=== PATIENT | female | born 1945 | race Caucasian/White ===

== ENCOUNTER 2019-12-11 18:16 | Inpatient (IN) ==
[2019-12-11] MEDS ORDERED: SODIUM CHLORIDE 0.9% 1,000 ML IV STA (18:40)
[2019-12-11 19:02] LABS: Basophils % 0.1 % (0.0-0.8); Hematocrit 35.8 VOL% (35.7-47.0); Hemoglobin 12.2 GM/DL (12.0-16.0); Immature Granulocytes % 2.5 %; Immature Granulocytes Absolute 0.36 #; Lymphocytes # 0.6 10*3/uL (1.4-4.0); Lymphocytes % 4.3 % (21.3-54.2); Mean Corpuscular HGB Conc 34.1 GM/DL (32-36); Mean Corpuscular Volume 82.9 FL (87-102); Mean Platelet Volume 9.7 FL (9.6-12.0); Monocytes % 2.4 % (1.7-12.7); Neutrophils % 90.7 % (38.7-73.9); Platelet Count 327 T/CUMM (130-400); Red Blood Count 4.32 MC/CUMM (3.8-5.5); Red Cell Distribution Width 13.7 % (9.3-17.3); White Blood Count 14.3 T/CUMM (4-12)
[2019-12-11 19:02] LABS: ABG Base Excess 0.4 MMOL/L (-2.5-2.5); ABG HCO3 24.6 MMOL/L (20-26); ABG PCO2 31.9 MM HG (35-48); ABG PH 7.473 (7.35-7.45); ABG PO2 56.1 MM HG (80-95); ABG TCO2 20.9 MMOL/L (23-27)
[2019-12-11 19:19] LABS: Lymphocytes 7 % (20-55); Metamyelocytes 1 %; Microcytosis 1+; Myelocytes 2 %; Segmented Neutrophils 88 % (50-85); Total Cells Counted 100
[2019-12-11 19:20] LABS: Ovalocytes 1+; Schistocytes 1+; Toxic Granulation 1+
[2019-12-11 19:21] LABS: Hypochromasia Slight
[2019-12-11 19:22] LABS: Platelet Estimate Normal; Polychromasia Slight; Spherocytes 1+
[2019-12-11] MEDS ORDERED: cefTRIAXone 1,000 MG in SODIUM CHLORIDE 0.9% 100 ML IV STA (19:22)
[2019-12-11] MEDS ORDERED: LEVOFLOXACIN INJ 500 MG in PREMIX 1 EACH IV STA (19:22)
[2019-12-11 19:23] LABS: INR 1.1; PT Patient Result 11.8 SECS (9.8-11.9)
[2019-12-11 19:28] LABS: Calcium 8.1 MG/DL (8.5-10.1)
[2019-12-11 19:29] LABS: Albumin 2.9 G/DL (3.4-5.0); Bilirubin,Total 0.6 MG/DL (0.2-1.0); Osmolality,Calculated 245.1 MOS/KG (273-304); Total Protein 6.7 G/DL (6.4-8.3)
[2019-12-11 19:33] LABS: Ferritin 1157.7 ng/ml (8-252)
[2019-12-11] MEDS ORDERED: ONDANSETRON 4 MG/2 ML VIAL IV PRN (20:09)
[2019-12-11] MEDS: DOCUSATE SODIUM 100 MG CAPSULE PO SCH (23:10)
[2019-12-11] MEDS: SODIUM CHLORIDE 0.9% 1,000 ML IV SCH (23:11)
[2019-12-12 05:51] LABS: Basophils % 0.2 % (0.0-0.8); Hematocrit 33.8 VOL% (35.7-47.0); Immature Granulocytes % 3.1 %; Immature Granulocytes Absolute 0.35 #; Lymphocytes # 0.4 10*3/uL (1.4-4.0); Lymphocytes % 3.7 % (21.3-54.2); Mean Corpuscular HGB Conc 32.5 GM/DL (32-36); Mean Platelet Volume 10.2 FL (9.6-12.0); Platelet Count 208 T/CUMM (130-400); Red Blood Count 3.93 MC/CUMM (3.8-5.5); Red Cell Distribution Width 13.7 % (9.3-17.3); White Blood Count 11.2 T/CUMM (4-12)
[2019-12-12 06:14] LABS: Albumin 2.2 G/DL (3.4-5.0); Bilirubin,Total 0.6 MG/DL (0.2-1.0); Calcium 7.7 MG/DL (8.5-10.1); Osmolality,Calculated 244.9 MOS/KG (273-304); Total Protein 6.3 G/DL (6.4-8.3)
[2019-12-12 06:20] LABS: Band Neutrophils 1 % (0-10); Hypochromasia 1+; Lymphocytes 5 % (20-55); Ovalocytes Slight; Platelet Estimate Adequate; Segmented Neutrophils 92 % (50-85); Total Cells Counted 100
[2019-12-12 06:21] LABS: Microcytosis Slight
[2019-12-12] MEDS: ALBUTEROL INHALER 18 GM INH SCH ×3 (07:12→18:17)
[2019-12-12] MEDS: SODIUM CHLORIDE 0.9% 1,000 ML IV SCH ×4 (08:09→17:10)
[2019-12-12] MEDS: DOCUSATE SODIUM 100 MG CAPSULE PO SCH ×2 (08:59→20:24)
[2019-12-12] MEDS: MULTIVITAMIN (CENTRUM) TABLET PO SCH (08:59)
[2019-12-12] MEDS: FAMOTIDINE 20 MG TABLET PO SCH ×2 (08:59→20:24)
[2019-12-12] MEDS: LORATADINE 10 MG TABLET PO SCH (08:59)
[2019-12-12] MEDS: METOPROLOL SUCCINATE XL 50 MG TABLET PO SCH ×2 (08:59→20:24)
[2019-12-12] MEDS: MAGNESIUM OXIDE 400 MG TABLET PO SCH (08:59)
[2019-12-12] MEDS: ASCORBIC ACID 500 MG TABLET PO SCH ×2 (08:59→20:24)
[2019-12-12] MEDS ORDERED: LORATADINE 10 MG PO SCH (09:00)
[2019-12-12] MEDS: ASPIRIN EC 81 MG TABLET PO SCH (09:00)
[2019-12-12] MEDS ORDERED: methylPREDNISolone SOD SUC 40 MG/1 ML VIAL IV SCH (09:00)
[2019-12-12] MEDS ORDERED: DEXAMETHASONE 10 MG/1 ML VIAL IV SCH (09:00)
[2019-12-12] MEDS ORDERED: DEXAMETHASONE INJ 10 MG in SODIUM CHLORIDE 0.9% 50 ML IV SCH (09:00)
[2019-12-12] MEDS: ENOXAPARIN 30 MG/0.3 ML SYRINGE SUBCUT SCH ×2 (09:00→20:24)
[2019-12-12] MEDS ORDERED: PANTOPRAZOLE 40 MG TABLET PO SCH (09:00)
[2019-12-12] MEDS: LOSARTAN 50 MG TABLET PO SCH (09:00)
[2019-12-12] MEDS: ATORVASTATIN 10 MG TABLET PO SCH (09:00)
[2019-12-12 17:58] LABS: Apearance,Urine CLEAR (Clear); Bilirubin,Urine Negative (Negative); Blood, Urine Small mg/dL (Negative); Glucose,Urine (UA) Negative (Negative); Ketones,Urine 5 mg/dL (Negative); Mucus,Urine Occasional /LPF (Occasional); Nitrite,Urine Negative (Negative); Protein,Urine Negative; RBC,Urine 7 /HPF (0-4); Urine Color Yellow (Yellow); Urine Specific Gravity 1.005 (1.001-1.035); Urine Urobilinogen < 2.0 EU/DL (0.2-1.0); WBC,Urine 1 /HPF (0-6)
[2019-12-12] MEDS: MONTELUKAST 10 MG TABLET PO SCH (20:24)
[2019-12-13] MEDS: ALBUTEROL INHALER 18 GM INH SCH ×4 (00:23→20:44)
[2019-12-13] MEDS: SODIUM CHLORIDE 0.9% 1,000 ML IV SCH ×4 (02:58→22:16)
[2019-12-13 05:43] LABS: Basophils % 0.1 % (0.0-0.8); Hematocrit 30.4 VOL% (35.7-47.0); Hemoglobin 10.2 GM/DL (12.0-16.0); Immature Granulocytes Absolute 0.44 #; Lymphocytes # 0.4 10*3/uL (1.4-4.0); Lymphocytes % 3.8 % (21.3-54.2); Mean Corpuscular HGB Conc 33.6 GM/DL (32-36); Mean Corpuscular Volume 82.8 FL (87-102); Mean Platelet Volume 9.9 FL (9.6-12.0); Neutrophils % 89.1 % (38.7-73.9); Platelet Count 245 T/CUMM (130-400); Red Blood Count 3.67 MC/CUMM (3.8-5.5); Red Cell Distribution Width 13.9 % (9.3-17.3)
[2019-12-13 06:08] LABS: Hypochromasia Slight; Lymphocytes 6 % (20-55); Platelet Estimate Adequate; Segmented Neutrophils 90 % (50-85); Total Cells Counted 100
[2019-12-13 06:09] LABS: Microcytosis Slight
[2019-12-13 06:22] LABS: Albumin 2.1 G/DL (3.4-5.0); Bilirubin,Total 0.5 MG/DL (0.2-1.0); Calcium 7.8 MG/DL (8.5-10.1); Osmolality,Calculated 267.2 MOS/KG (273-304); Risk Ratio 2.43; Total Protein 5.9 G/DL (6.4-8.3); VLDL CHOLESTEROL 12.6 MG/DL
[2019-12-13] MEDS: DOCUSATE SODIUM 100 MG CAPSULE PO SCH ×2 (08:17→20:41)
[2019-12-13] MEDS: ASCORBIC ACID 500 MG TABLET PO SCH ×2 (08:17→20:43)
[2019-12-13] MEDS: LORATADINE 10 MG TABLET PO SCH (08:17)
[2019-12-13] MEDS: ATORVASTATIN 10 MG TABLET PO SCH (08:17)
[2019-12-13] MEDS: ENOXAPARIN 30 MG/0.3 ML SYRINGE SUBCUT SCH ×2 (08:17→20:42)
[2019-12-13] MEDS: MULTIVITAMIN (CENTRUM) TABLET PO SCH (08:18)
[2019-12-13] MEDS: FAMOTIDINE 20 MG TABLET PO SCH ×2 (08:18→20:43)
[2019-12-13] MEDS: MAGNESIUM OXIDE 400 MG TABLET PO SCH (08:18)
[2019-12-13] MEDS: ASPIRIN EC 81 MG TABLET PO SCH (08:18)
[2019-12-13] MEDS: METOPROLOL SUCCINATE XL 50 MG TABLET PO SCH ×2 (08:18→20:44)
[2019-12-13] MEDS: LOSARTAN 50 MG TABLET PO SCH (08:18)
[2019-12-13] MEDS: DEXAMETHASONE INJ 10 MG in SODIUM CHLORIDE 0.9% 50 ML IV SCH (08:57)
[2019-12-13 17:05] LABS: ABG Base Excess 0.9 MMOL/L (-2.5-2.5); ABG Oxygen Saturation 87.9 % (95-100); ABG PCO2 33.4 MM HG (35-48); ABG PH 7.466 (7.35-7.45); ABG PO2 52.8 MM HG (80-95); ABG TCO2 21.6 MMOL/L (23-27)
[2019-12-13] MEDS: LEVOFLOXACIN INJ 750 MG in PREMIX 1 EACH IV SCH (17:56)
[2019-12-13] MEDS ORDERED: ARFORMOTEROL 15 MCG/2 ML NEB RESP TX SCH (19:00)
[2019-12-13 20:26] LABS: ABG Base Excess 0.3 MMOL/L (-2.5-2.5); ABG HCO3 24.7 MMOL/L (20-26); ABG Oxygen Saturation 98.8 % (95-100); ABG PCO2 35.7 MM HG (35-48); ABG PH 7.438 (7.35-7.45); ABG TCO2 21.6 MMOL/L (23-27); Allen Test Positive; Pt O2 Delivery Device BIPAP
[2019-12-13] MEDS: MONTELUKAST 10 MG TABLET PO SCH (20:43)
[2019-12-14] MEDS: ALBUTEROL INHALER 18 GM INH SCH ×4 (01:15→20:39)
[2019-12-14 03:29] LABS: ABG Base Excess -1.3 MMOL/L (-2.5-2.5); ABG HCO3 22.8 MMOL/L (20-26); ABG Oxygen Saturation 95.7 % (95-100); ABG PCO2 36.1 MM HG (35-48); ABG PH 7.419 (7.35-7.45); ABG PO2 82.2 MM HG (80-95); ABG TCO2 23.9 MMOL/L (23-27); Allen Test Positive; Pt O2 Delivery Device Ventilator
[2019-12-14 04:31] LABS: Basophils % 0.2 % (0.0-0.8); Hematocrit 30.6 VOL% (35.7-47.0); Hemoglobin 10.2 GM/DL (12.0-16.0); Immature Granulocytes % 2.2 %; Immature Granulocytes Absolute 0.24 #; Lymphocytes # 0.3 10*3/uL (1.4-4.0); Lymphocytes % 2.9 % (21.3-54.2); Mean Corpuscular HGB Conc 33.3 GM/DL (32-36); Mean Corpuscular Volume 84.3 FL (87-102); Mean Platelet Volume 9.5 FL (9.6-12.0); Monocytes % 1.7 % (1.7-12.7); Platelet Count 246 T/CUMM (130-400); Red Blood Count 3.63 MC/CUMM (3.8-5.5); Red Cell Distribution Width 14.1 % (9.3-17.3); White Blood Count 10.9 T/CUMM (4-12)
[2019-12-14 04:59] LABS: Bilirubin,Total 0.7 MG/DL (0.2-1.0); Calcium 7.7 MG/DL (8.5-10.1); Total Protein 5.9 G/DL (6.4-8.3)
[2019-12-14 05:12] LABS: Hypochromasia 1+; Lymphocytes 3 % (20-55); Microcytosis Slight; Ovalocytes Slight; Platelet Estimate Adequate; Segmented Neutrophils 95 % (50-85); Total Cells Counted 100
[2019-12-14] MEDS: LOSARTAN 50 MG TABLET PO SCH (08:21)
[2019-12-14] MEDS: ASCORBIC ACID 500 MG TABLET PO SCH ×2 (08:21→20:39)
[2019-12-14] MEDS: MAGNESIUM OXIDE 400 MG TABLET PO SCH (08:21)
[2019-12-14] MEDS: ENOXAPARIN 30 MG/0.3 ML SYRINGE SUBCUT SCH ×2 (08:21→20:39)
[2019-12-14] MEDS: MULTIVITAMIN (CENTRUM) TABLET PO SCH (08:21)
[2019-12-14] MEDS: ATORVASTATIN 10 MG TABLET PO SCH (08:21)
[2019-12-14] MEDS: LORATADINE 10 MG TABLET PO SCH (08:22)
[2019-12-14] MEDS: DOCUSATE SODIUM 100 MG CAPSULE PO SCH ×2 (08:22→20:39)
[2019-12-14] MEDS: FAMOTIDINE 20 MG TABLET PO SCH ×2 (08:22→20:39)
[2019-12-14] MEDS: ASPIRIN EC 81 MG TABLET PO SCH (08:22)
[2019-12-14] MEDS: METOPROLOL SUCCINATE XL 50 MG TABLET PO SCH ×2 (08:22→20:39)
[2019-12-14] MEDS: SODIUM CHLORIDE 0.9% 1,000 ML IV SCH ×3 (09:21→23:29)
[2019-12-14] MEDS: DEXAMETHASONE INJ 10 MG in SODIUM CHLORIDE 0.9% 50 ML IV SCH (09:22)
[2019-12-14] MEDS ORDERED: SODIUM CHLORIDE 0.9% 1,000 ML IV PRN (14:13)
[2019-12-14] MEDS: LEVOFLOXACIN INJ 750 MG in PREMIX 1 EACH IV SCH (15:53)
[2019-12-14] MEDS ORDERED: REMDESIVIR 200 MG in SODIUM CHLORIDE 0.9% 210 ML IV ONE (17:00)
[2019-12-14] MEDS: MONTELUKAST 10 MG TABLET PO SCH (20:39)
[2019-12-15] MEDS: ALBUTEROL INHALER 18 GM INH SCH ×4 (00:31→20:50)
[2019-12-15 03:38] LABS: Basophils % 0.1 % (0.0-0.8); Hematocrit 30.2 VOL% (35.7-47.0); Immature Granulocytes % 1.9 %; Immature Granulocytes Absolute 0.21 #; Lymphocytes # 0.4 10*3/uL (1.4-4.0); Lymphocytes % 3.1 % (21.3-54.2); Mean Corpuscular HGB Conc 33.1 GM/DL (32-36); Mean Platelet Volume 9.4 FL (9.6-12.0); Monocytes % 2.4 % (1.7-12.7); Neutrophils % 92.5 % (38.7-73.9); Platelet Count 236 T/CUMM (130-400); Red Blood Count 3.51 MC/CUMM (3.8-5.5); White Blood Count 11.3 T/CUMM (4-12)
[2019-12-15 03:53] LABS: Calcium 7.5 MG/DL (8.5-10.1)
[2019-12-15 04:28] LABS: Hypochromasia 1+; Lymphocytes 8 % (20-55); Platelet Estimate Adequate; Segmented Neutrophils 90 % (50-85); Total Cells Counted 100
[2019-12-15 04:29] LABS: Microcytosis Slight
[2019-12-15] MEDS: SODIUM CHLORIDE 0.9% 1,000 ML IV SCH ×3 (04:37→15:06)
[2019-12-15 05:10] LABS: ABG HCO3 22.8 MMOL/L (20-26); ABG Oxygen Saturation 98.5 % (95-100); ABG PCO2 34.8 MM HG (35-48); ABG PH 7.435 (7.35-7.45); ABG PO2 158.3 MM HG (80-95); ABG TCO2 23.9 MMOL/L (23-27); Allen Test Positive; Pt O2 Delivery Device BIPAP
[2019-12-15] MEDS: DOCUSATE SODIUM 100 MG CAPSULE PO SCH ×2 (08:42→20:50)
[2019-12-15] MEDS: ASPIRIN EC 81 MG TABLET PO SCH (08:42)
[2019-12-15] MEDS: ATORVASTATIN 10 MG TABLET PO SCH (08:42)
[2019-12-15] MEDS: MAGNESIUM OXIDE 400 MG TABLET PO SCH (08:42)
[2019-12-15] MEDS: FAMOTIDINE 20 MG TABLET PO SCH ×2 (08:42→20:50)
[2019-12-15] MEDS: MULTIVITAMIN (CENTRUM) TABLET PO SCH (08:42)
[2019-12-15] MEDS: LORATADINE 10 MG TABLET PO SCH (08:42)
[2019-12-15] MEDS: ASCORBIC ACID 500 MG TABLET PO SCH ×2 (08:42→20:50)
[2019-12-15] MEDS: LOSARTAN 50 MG TABLET PO SCH (08:42)
[2019-12-15] MEDS: ENOXAPARIN 30 MG/0.3 ML SYRINGE SUBCUT SCH ×2 (08:43→20:50)
[2019-12-15] MEDS: METOPROLOL SUCCINATE XL 50 MG TABLET PO SCH ×2 (08:43→20:50)
[2019-12-15] MEDS: DEXAMETHASONE INJ 10 MG in SODIUM CHLORIDE 0.9% 50 ML IV SCH (10:00)
[2019-12-15] MEDS ORDERED: SODIUM PHOSPHATE INJ 30 MMOL in SODIUM CHLORIDE 0.9% 250 ML IV ONE (14:00)
[2019-12-15] MEDS: LEVOFLOXACIN INJ 750 MG in PREMIX 1 EACH IV SCH (15:30)
[2019-12-15] MEDS: REMDESIVIR 100 MG in SODIUM CHLORIDE 0.9% 230 ML IV SCH (17:22)
[2019-12-15] MEDS: MONTELUKAST 10 MG TABLET PO SCH (20:50)
[2019-12-16] MEDS: ALBUTEROL INHALER 18 GM INH SCH ×4 (01:26→21:14)
[2019-12-16 03:59] LABS: Basophils % 0.1 % (0.0-0.8); Hematocrit 33.2 VOL% (35.7-47.0); Hemoglobin 10.8 GM/DL (12.0-16.0); Immature Granulocytes % 1.9 %; Immature Granulocytes Absolute 0.24 #; Lymphocytes # 0.4 10*3/uL (1.4-4.0); Lymphocytes % 3.1 % (21.3-54.2); Mean Corpuscular HGB Conc 32.5 GM/DL (32-36); Mean Corpuscular Volume 86.5 FL (87-102); Mean Platelet Volume 9.2 FL (9.6-12.0); Monocytes % 1.6 % (1.7-12.7); Neutrophils % 93.3 % (38.7-73.9); Platelet Count 218 T/CUMM (130-400); Red Blood Count 3.84 MC/CUMM (3.8-5.5); White Blood Count 12.4 T/CUMM (4-12)
[2019-12-16] MEDS: SODIUM CHLORIDE 0.9% 1,000 ML IV SCH ×3 (04:26→21:15)
[2019-12-16 04:44] LABS: Calcium 7.3 MG/DL (8.5-10.1); Osmolality,Calculated 272.1 MOS/KG (273-304)
[2019-12-16 06:30] LABS: Lymphocytes 4 % (20-55); Ovalocytes Few; Poikilocytosis 1+; Segmented Neutrophils 94 % (50-85); Total Cells Counted 100
[2019-12-16 06:31] LABS: Burr Cells Few; Hypochromasia 2+; Platelet Estimate Normal; Polychromasia Slight; Schistocytes Few
[2019-12-16] MEDS: ASPIRIN EC 81 MG TABLET PO SCH (08:05)
[2019-12-16] MEDS: LORATADINE 10 MG TABLET PO SCH (08:05)
[2019-12-16] MEDS: ENOXAPARIN 30 MG/0.3 ML SYRINGE SUBCUT SCH ×2 (08:05→21:15)
[2019-12-16] MEDS: METOPROLOL SUCCINATE XL 50 MG TABLET PO SCH ×2 (08:05→21:15)
[2019-12-16] MEDS: LOSARTAN 50 MG TABLET PO SCH (08:05)
[2019-12-16] MEDS: MAGNESIUM OXIDE 400 MG TABLET PO SCH (08:05)
[2019-12-16] MEDS: ATORVASTATIN 10 MG TABLET PO SCH (08:05)
[2019-12-16] MEDS: FAMOTIDINE 20 MG TABLET PO SCH ×2 (08:05→21:15)
[2019-12-16] MEDS: DOCUSATE SODIUM 100 MG CAPSULE PO SCH ×2 (08:05→21:14)
[2019-12-16] MEDS: ASCORBIC ACID 500 MG TABLET PO SCH ×2 (08:05→21:15)
[2019-12-16] MEDS: MULTIVITAMIN (CENTRUM) TABLET PO SCH (08:05)
[2019-12-16] MEDS: DEXAMETHASONE INJ 10 MG in SODIUM CHLORIDE 0.9% 50 ML IV SCH (10:15)
[2019-12-16 10:57] LABS: ABG Base Excess 1.1 MMOL/L (-2.5-2.5); ABG HCO3 25.3 MMOL/L (20-26); ABG Oxygen Saturation 94.6 % (95-100); ABG PCO2 35.4 MM HG (35-48); ABG PH 7.452 (7.35-7.45); ABG PO2 77.6 MM HG (80-95); ABG TCO2 22.1 MMOL/L (23-27)
[2019-12-16] MEDS: LORazepam 2 MG/1 ML VIAL IV PRN (15:55)
[2019-12-16] MEDS: LEVOFLOXACIN INJ 750 MG in PREMIX 1 EACH IV SCH (16:37)
[2019-12-16] MEDS: REMDESIVIR 100 MG in SODIUM CHLORIDE 0.9% 230 ML IV SCH (18:25)
[2019-12-16] MEDS: MONTELUKAST 10 MG TABLET PO SCH (21:15)
[2019-12-16] MEDS: ALPRAZolam 0.25 MG TABLET PO PRN (21:18)
[2019-12-17] MEDS: ALBUTEROL INHALER 18 GM INH SCH ×4 (01:35→20:27)
[2019-12-17 04:35] LABS: Basophils % 0.2 % (0.0-0.8); Hematocrit 33.2 VOL% (35.7-47.0); Hemoglobin 11.2 GM/DL (12.0-16.0); Immature Granulocytes % 1.3 %; Immature Granulocytes Absolute 0.14 #; Lymphocytes # 0.3 10*3/uL (1.4-4.0); Mean Corpuscular HGB Conc 33.7 GM/DL (32-36); Mean Corpuscular Volume 84.3 FL (87-102); Mean Platelet Volume 9.5 FL (9.6-12.0); Monocytes % 1.8 % (1.7-12.7); Neutrophils % 93.7 % (38.7-73.9); Platelet Count 201 T/CUMM (130-400); Red Blood Count 3.94 MC/CUMM (3.8-5.5); Red Cell Distribution Width 13.9 % (9.3-17.3); White Blood Count 11.2 T/CUMM (4-12)
[2019-12-17 04:53] LABS: Calcium 7.6 MG/DL (8.5-10.1); Osmolality,Calculated 276.8 MOS/KG (273-304)
[2019-12-17 05:24] LABS: Hypochromasia 1+; Lymphocytes 4 % (20-55); Ovalocytes Slight; Platelet Estimate Adequate; Segmented Neutrophils 95 % (50-85); Total Cells Counted 100
[2019-12-17 05:29] LABS: Allen Test Positive; Pt O2 Delivery Device BIPAP
[2019-12-17 05:30] LABS: ABG Base Excess 1.7 MMOL/L (-2.5-2.5); ABG HCO3 25.9 MMOL/L (20-26); ABG Oxygen Saturation 98.3 % (95-100); ABG PCO2 37.3 MM HG (35-48); ABG PH 7.446 (7.35-7.45)
[2019-12-17 06:30] LABS: Albumin 1.8 G/DL (3.4-5.0); Bilirubin,Total 0.5 MG/DL (0.2-1.0); Calcium 7.3 MG/DL (8.5-10.1); Osmolality,Calculated 278.7 MOS/KG (273-304); Total Protein 5.4 G/DL (6.4-8.3)
[2019-12-17] MEDS ORDERED: SALIVA SUBSTITUTE SPRAY 60 ML CAN SWISH/SWAL PRN (08:22)
[2019-12-17] MEDS: ENOXAPARIN 30 MG/0.3 ML SYRINGE SUBCUT SCH ×2 (08:35→20:27)
[2019-12-17] MEDS: LORazepam 2 MG/1 ML VIAL IV PRN (08:55)
[2019-12-17] MEDS: SODIUM CHLORIDE 0.9% 1,000 ML IV SCH ×3 (09:40→20:26)
[2019-12-17] MEDS: DEXAMETHASONE INJ 10 MG in SODIUM CHLORIDE 0.9% 50 ML IV SCH (10:14)
[2019-12-17] MEDS: ASCORBIC ACID 500 MG TABLET PO SCH ×2 (14:00→20:30)
[2019-12-17] MEDS: FAMOTIDINE 20 MG TABLET PO SCH ×2 (14:00→20:29)
[2019-12-17] MEDS: ATORVASTATIN 10 MG TABLET PO SCH (14:00)
[2019-12-17] MEDS: LOSARTAN 50 MG TABLET PO SCH (14:00)
[2019-12-17] MEDS: ASPIRIN EC 81 MG TABLET PO SCH (14:00)
[2019-12-17] MEDS: METOPROLOL SUCCINATE XL 50 MG TABLET PO SCH ×2 (14:00→20:30)
[2019-12-17] MEDS: MAGNESIUM OXIDE 400 MG TABLET PO SCH (14:00)
[2019-12-17] MEDS: MULTIVITAMIN (CENTRUM) TABLET PO SCH (14:00)
[2019-12-17] MEDS: LORATADINE 10 MG TABLET PO SCH (14:00)
[2019-12-17] MEDS: DOCUSATE SODIUM 100 MG CAPSULE PO SCH (14:00)
[2019-12-17] MEDS: LEVOFLOXACIN INJ 750 MG in PREMIX 1 EACH IV SCH (16:35)
[2019-12-17] MEDS: REMDESIVIR 100 MG in SODIUM CHLORIDE 0.9% 230 ML IV SCH (18:30)
[2019-12-17] MEDS: DOCUSATE SODIUM 100 MG/10 ML UDCUP PO SCH (20:27)
[2019-12-17] MEDS: MONTELUKAST 10 MG TABLET PO SCH (20:29)
[2019-12-17] MEDS: ALPRAZolam 0.25 MG TABLET PO PRN (20:31)
[2019-12-18] MEDS: ALBUTEROL INHALER 18 GM INH SCH ×4 (02:23→18:05)
[2019-12-18] MEDS: SODIUM CHLORIDE 0.9% 1,000 ML IV SCH ×4 (03:30→23:30)
[2019-12-18 04:09] LABS: Basophils % 0.1 % (0.0-0.8); Hematocrit 31.6 VOL% (35.7-47.0); Hemoglobin 10.4 GM/DL (12.0-16.0); Immature Granulocytes % 0.7 %; Immature Granulocytes Absolute 0.09 #; Lymphocytes # 0.3 10*3/uL (1.4-4.0); Lymphocytes % 2.6 % (21.3-54.2); Mean Corpuscular HGB Conc 32.9 GM/DL (32-36); Mean Corpuscular Volume 84.5 FL (87-102); Mean Platelet Volume 9.6 FL (9.6-12.0); Monocytes % 1.8 % (1.7-12.7); Neutrophils % 94.8 % (38.7-73.9); Platelet Count 204 T/CUMM (130-400); Red Blood Count 3.74 MC/CUMM (3.8-5.5); Red Cell Distribution Width 13.8 % (9.3-17.3); White Blood Count 12.5 T/CUMM (4-12)
[2019-12-18 04:31] LABS: Hypochromasia Slight; Lymphocytes 1 % (20-55); Platelet Estimate Adequate; Segmented Neutrophils 97 % (50-85); Total Cells Counted 100
[2019-12-18 04:35] LABS: Calcium 7.4 MG/DL (8.5-10.1)
[2019-12-18 04:39] LABS: ABG Base Excess 2.2 MMOL/L (-2.5-2.5); ABG HCO3 26.3 MMOL/L (20-26); ABG Oxygen Saturation 99.2 % (95-100); ABG PCO2 36.4 MM HG (35-48); ABG PH 7.459 (7.35-7.45); ABG TCO2 22.8 MMOL/L (23-27)
[2019-12-18 05:04] LABS: Albumin 1.7 G/DL (3.4-5.0); Bilirubin,Total 0.4 MG/DL (0.2-1.0); Calcium 7.2 MG/DL (8.5-10.1); Osmolality,Calculated 277.8 MOS/KG (273-304); Total Protein 5.2 G/DL (6.4-8.3)
[2019-12-18] MEDS: ENOXAPARIN 30 MG/0.3 ML SYRINGE SUBCUT SCH ×2 (08:40→21:20)
[2019-12-18] MEDS: ASPIRIN EC 81 MG TABLET PO SCH (08:40)
[2019-12-18] MEDS: ATORVASTATIN 10 MG TABLET PO SCH (08:40)
[2019-12-18] MEDS: FAMOTIDINE 20 MG TABLET PO SCH ×2 (08:40→21:20)
[2019-12-18] MEDS: MAGNESIUM OXIDE 400 MG TABLET PO SCH (08:40)
[2019-12-18] MEDS: ALPRAZolam 0.25 MG TABLET PO PRN ×2 (08:40→21:20)
[2019-12-18] MEDS: LORATADINE 10 MG TABLET PO SCH (08:40)
[2019-12-18] MEDS: ASCORBIC ACID 500 MG TABLET PO SCH ×2 (08:40→21:20)
[2019-12-18] MEDS: METOPROLOL SUCCINATE XL 50 MG TABLET PO SCH ×2 (08:40→21:20)
[2019-12-18] MEDS: LOSARTAN 50 MG TABLET PO SCH (08:40)
[2019-12-18] MEDS: DOCUSATE SODIUM 100 MG/10 ML UDCUP PO SCH ×2 (08:40→21:20)
[2019-12-18] MEDS: DEXAMETHASONE INJ 10 MG in SODIUM CHLORIDE 0.9% 50 ML IV SCH (09:10)
[2019-12-18] MEDS: MULTIVITAMIN LIQUID (CENTRUM) 60 ML BOTTLE NG SCH (11:55)
[2019-12-18] MEDS: LEVOFLOXACIN INJ 750 MG in PREMIX 1 EACH IV SCH (15:35)
[2019-12-18] MEDS: REMDESIVIR 100 MG in SODIUM CHLORIDE 0.9% 230 ML IV SCH (17:24)
[2019-12-18] MEDS: MONTELUKAST 10 MG TABLET PO SCH (21:20)
[2019-12-19] MEDS: ALBUTEROL INHALER 18 GM INH SCH ×4 (01:30→20:20)
[2019-12-19 04:21] LABS: Basophils % 0.1 % (0.0-0.8); Eosinophils % 0.1 % (0.00-10.9); Hemoglobin 10.9 GM/DL (12.0-16.0); Immature Granulocytes % 0.8 %; Immature Granulocytes Absolute 0.13 #; Lymphocytes # 0.3 10*3/uL (1.4-4.0); Mean Corpuscular Volume 85.1 FL (87-102); Mean Platelet Volume 9.6 FL (9.6-12.0); Monocytes % 1.7 % (1.7-12.7); Neutrophils % 95.3 % (38.7-73.9); Platelet Count 209 T/CUMM (130-400); Red Blood Count 3.88 MC/CUMM (3.8-5.5); Red Cell Distribution Width 13.9 % (9.3-17.3); White Blood Count 16.1 T/CUMM (4-12)
[2019-12-19 04:36] LABS: Calcium 7.4 MG/DL (8.5-10.1)
[2019-12-19 04:41] LABS: ABG Base Excess 2.6 MMOL/L (-2.5-2.5); ABG HCO3 26.4 MMOL/L (20-26); ABG Oxygen Saturation 98.9 % (95-100); ABG PCO2 37.4 MM HG (35-48); ABG PH 7.466 (7.35-7.45); ABG PO2 198.1 MM HG (80-95); ABG TCO2 27.5 MMOL/L (23-27)
[2019-12-19 04:45] LABS: Hypochromasia 1+; Lymphocytes 1 % (20-55); Microcytosis Slight; Segmented Neutrophils 97 % (50-85); Total Cells Counted 100
[2019-12-19 04:46] LABS: Acanthocytes Few; Ovalocytes Slight
[2019-12-19 05:03] LABS: Albumin 1.7 G/DL (3.4-5.0); Bilirubin,Total 0.4 MG/DL (0.2-1.0); Calcium 7.2 MG/DL (8.5-10.1); Total Protein 5.3 G/DL (6.4-8.3)
[2019-12-19] MEDS: DOCUSATE SODIUM 100 MG/10 ML UDCUP PO SCH ×2 (07:59→20:21)
[2019-12-19] MEDS: ENOXAPARIN 30 MG/0.3 ML SYRINGE SUBCUT SCH ×2 (07:59→20:21)
[2019-12-19] MEDS: MAGNESIUM OXIDE 400 MG TABLET PO SCH (08:00)
[2019-12-19] MEDS: MULTIVITAMIN LIQUID (CENTRUM) 60 ML BOTTLE NG SCH (08:00)
[2019-12-19] MEDS: FAMOTIDINE 20 MG TABLET PO SCH ×2 (08:00→20:21)
[2019-12-19] MEDS: LOSARTAN 50 MG TABLET PO SCH (08:00)
[2019-12-19] MEDS: METOPROLOL SUCCINATE XL 50 MG TABLET PO SCH (08:00)
[2019-12-19] MEDS: ASPIRIN EC 81 MG TABLET PO SCH (08:00)
[2019-12-19] MEDS: LORATADINE 10 MG TABLET PO SCH (08:00)
[2019-12-19] MEDS: ASCORBIC ACID 500 MG TABLET PO SCH ×2 (08:00→20:21)
[2019-12-19] MEDS: ATORVASTATIN 10 MG TABLET PO SCH (08:00)
[2019-12-19] MEDS: LORazepam 2 MG/1 ML VIAL IV PRN (09:00)
[2019-12-19] MEDS: DEXAMETHASONE INJ 10 MG in SODIUM CHLORIDE 0.9% 50 ML IV SCH (10:30)
[2019-12-19] MEDS: ALPRAZolam 0.25 MG TABLET PO PRN (14:05)
[2019-12-19] MEDS ORDERED: FUROSEMIDE 40 MG/4 ML VIAL IV ONE (15:57)
[2019-12-19 17:58] LABS: Apearance,Urine CLEAR (Clear); Bilirubin,Urine Negative (Negative); Blood, Urine Negative (Negative); Glucose,Urine (UA) Negative (Negative); Ketones,Urine Negative (Negative); Mucus,Urine Occasional /LPF (Occasional); Nitrite,Urine Negative (Negative); Protein,Urine Negative; Squamous Epithelial Cell,Urine Occasional /HPF (0-10); Urine Color Yellow (Yellow); Urine Specific Gravity 1.013 (1.001-1.035); Urine Urobilinogen < 2.0 EU/DL (0.2-1.0)
[2019-12-19] MEDS ORDERED: METOPROLOL TARTRATE 50 MG TABLET ONE (19:49)
[2019-12-19] MEDS: MONTELUKAST 10 MG TABLET PO SCH (20:21)
[2019-12-19] MEDS: METOPROLOL TARTRATE 50 MG TABLET NG SCH (20:21)
[2019-12-20] MEDS: ALBUTEROL INHALER 18 GM INH SCH ×4 (02:10→19:59)
[2019-12-20 04:24] LABS: Basophils % 0.1 % (0.0-0.8); Eosinophils % 0.1 % (0.00-10.9); Hematocrit 35.1 VOL% (35.7-47.0); Hemoglobin 11.5 GM/DL (12.0-16.0); Immature Granulocytes % 0.6 %; Immature Granulocytes Absolute 0.09 #; Lymphocytes # 0.4 10*3/uL (1.4-4.0); Lymphocytes % 2.7 % (21.3-54.2); Mean Corpuscular HGB Conc 32.8 GM/DL (32-36); Mean Corpuscular Volume 85.4 FL (87-102); Monocytes % 1.3 % (1.7-12.7); Neutrophils % 95.2 % (38.7-73.9); Platelet Count 227 T/CUMM (130-400); Red Blood Count 4.11 MC/CUMM (3.8-5.5); Red Cell Distribution Width 13.6 % (9.3-17.3); White Blood Count 13.9 T/CUMM (4-12)
[2019-12-20 04:46] LABS: Calcium 7.2 MG/DL (8.5-10.1); Osmolality,Calculated 274.2 MOS/KG (273-304)
[2019-12-20 04:50] LABS: Hypochromasia Slight; Lymphocytes 2 % (20-55); Microcytosis Slight; Nucleated Red Blood Cells 1 (0-5); Ovalocytes Slight; Platelet Estimate Adequate; Segmented Neutrophils 97 % (50-85); Total Cells Counted 100
[2019-12-20 04:58] LABS: Albumin 1.7 G/DL (3.4-5.0); Bilirubin,Total 0.4 MG/DL (0.2-1.0); Calcium 7.4 MG/DL (8.5-10.1); Osmolality,Calculated 276.1 MOS/KG (273-304); Total Protein 5.6 G/DL (6.4-8.3)
[2019-12-20] MEDS: ENOXAPARIN 30 MG/0.3 ML SYRINGE SUBCUT SCH ×2 (08:26→20:22)
[2019-12-20] MEDS: ATORVASTATIN 10 MG TABLET PO SCH (08:27)
[2019-12-20] MEDS: ASCORBIC ACID 500 MG TABLET PO SCH ×2 (08:27→20:23)
[2019-12-20] MEDS: ASPIRIN EC 81 MG TABLET PO SCH (08:27)
[2019-12-20] MEDS: MAGNESIUM OXIDE 400 MG TABLET PO SCH (08:27)
[2019-12-20] MEDS: ALPRAZolam 0.25 MG TABLET PO PRN ×2 (08:27→20:22)
[2019-12-20] MEDS: LOSARTAN 50 MG TABLET PO SCH (08:27)
[2019-12-20] MEDS: DOCUSATE SODIUM 100 MG/10 ML UDCUP PO SCH ×2 (08:27→20:22)
[2019-12-20] MEDS: LORATADINE 10 MG TABLET PO SCH (08:27)
[2019-12-20] MEDS: FAMOTIDINE 20 MG TABLET PO SCH ×2 (08:27→20:23)
[2019-12-20] MEDS: MULTIVITAMIN LIQUID (CENTRUM) 60 ML BOTTLE NG SCH (08:27)
[2019-12-20] MEDS: METOPROLOL TARTRATE 50 MG TABLET NG SCH ×2 (08:27→20:22)
[2019-12-20] MEDS: DEXAMETHASONE INJ 10 MG in SODIUM CHLORIDE 0.9% 50 ML IV SCH (10:05)
[2019-12-20] MEDS: LORazepam 2 MG/1 ML VIAL IV PRN ×2 (13:45→23:22)
[2019-12-20] MEDS ORDERED: FUROSEMIDE 40 MG/4 ML VIAL IV ONE (16:38)
[2019-12-20] MEDS: MONTELUKAST 10 MG TABLET PO SCH (20:23)
[2019-12-20] MEDS ORDERED: LORazepam 2 MG/1 ML VIAL ONE (23:18)
[2019-12-21] MEDS: ALBUTEROL INHALER 18 GM INH SCH ×4 (03:51→19:32)
[2019-12-21 04:39] LABS: Basophils % 0.1 % (0.0-0.8); Hematocrit 32.7 VOL% (35.7-47.0); Immature Granulocytes Absolute 0.12 #; Lymphocytes # 0.4 10*3/uL (1.4-4.0); Lymphocytes % 3.2 % (21.3-54.2); Mean Corpuscular HGB Conc 33.6 GM/DL (32-36); Mean Corpuscular Volume 82.8 FL (87-102); Mean Platelet Volume 10.1 FL (9.6-12.0); Monocytes % 1.3 % (1.7-12.7); Neutrophils % 94.4 % (38.7-73.9); Platelet Count 219 T/CUMM (130-400); Red Blood Count 3.95 MC/CUMM (3.8-5.5); Red Cell Distribution Width 13.4 % (9.3-17.3); White Blood Count 12.2 T/CUMM (4-12)
[2019-12-21 05:01] LABS: Eosinophils 1 % (0-10); Hypochromasia 1+; Lymphocytes 1 % (20-55); Ovalocytes Slight; Platelet Estimate Adequate; Segmented Neutrophils 97 % (50-85); Total Cells Counted 100
[2019-12-21 05:02] LABS: Microcytosis Slight
[2019-12-21 05:37] LABS: Calcium 7.5 MG/DL (8.5-10.1); Osmolality,Calculated 270.4 MOS/KG (273-304)
[2019-12-21] MEDS: LORATADINE 10 MG TABLET PO SCH (08:04)
[2019-12-21] MEDS: DOCUSATE SODIUM 100 MG/10 ML UDCUP PO SCH ×2 (08:05→20:41)
[2019-12-21] MEDS: ENOXAPARIN 30 MG/0.3 ML SYRINGE SUBCUT SCH ×2 (08:06→20:42)
[2019-12-21] MEDS: LOSARTAN 50 MG TABLET PO SCH (08:06)
[2019-12-21] MEDS: METOPROLOL TARTRATE 50 MG TABLET NG SCH ×2 (08:06→20:41)
[2019-12-21] MEDS: ATORVASTATIN 10 MG TABLET PO SCH (08:06)
[2019-12-21] MEDS: FAMOTIDINE 20 MG TABLET PO SCH ×2 (08:07→20:40)
[2019-12-21] MEDS: MAGNESIUM OXIDE 400 MG TABLET PO SCH (08:07)
[2019-12-21] MEDS: ASCORBIC ACID 500 MG TABLET PO SCH ×2 (08:07→20:40)
[2019-12-21] MEDS: MULTIVITAMIN (CENTRUM) TABLET PO SCH (08:15)
[2019-12-21] MEDS: ASPIRIN EC 81 MG TABLET PO SCH (08:15)
[2019-12-21] MEDS: DEXAMETHASONE INJ 10 MG in SODIUM CHLORIDE 0.9% 50 ML IV SCH (10:06)
[2019-12-21] MEDS: ALPRAZolam 0.25 MG TABLET PO PRN (20:40)
[2019-12-21] MEDS: MONTELUKAST 10 MG TABLET PO SCH (20:41)
[2019-12-22] MEDS: ALBUTEROL INHALER 18 GM INH SCH ×4 (00:27→18:22)
[2019-12-22 06:31] LABS: Basophils % 0.1 % (0.0-0.8); Eosinophils % 0.1 % (0.00-10.9); Hemoglobin 10.6 GM/DL (12.0-16.0); Immature Granulocytes % 0.7 %; Immature Granulocytes Absolute 0.08 #; Lymphocytes # 0.6 10*3/uL (1.4-4.0); Lymphocytes % 5.3 % (21.3-54.2); Mean Corpuscular HGB Conc 33.1 GM/DL (32-36); Mean Platelet Volume 10.2 FL (9.6-12.0); Monocytes % 2.9 % (1.7-12.7); Neutrophils % 90.9 % (38.7-73.9); Platelet Count 252 T/CUMM (130-400); Red Blood Count 3.81 MC/CUMM (3.8-5.5); Red Cell Distribution Width 13.5 % (9.3-17.3)
[2019-12-22 07:07] LABS: Calcium 7.6 MG/DL (8.5-10.1)
[2019-12-22 07:08] LABS: Anisocytosis 1+; Band Neutrophils 3 % (0-10); Eosinophils 1 % (0-10); Lymphocytes 6 % (20-55); Platelet Estimate Normal; Segmented Neutrophils 89 % (50-85); Total Cells Counted 100
[2019-12-22 07:09] LABS: Burr Cells Few; Giant Platelets Few; Poikilocytosis Slight
[2019-12-22] MEDS: METOPROLOL TARTRATE 50 MG TABLET NG SCH ×2 (08:45→20:12)
[2019-12-22] MEDS: MULTIVITAMIN (CENTRUM) TABLET PO SCH (08:45)
[2019-12-22] MEDS: ASPIRIN EC 81 MG TABLET PO SCH (08:45)
[2019-12-22] MEDS: LORATADINE 10 MG TABLET PO SCH (08:45)
[2019-12-22] MEDS: MAGNESIUM OXIDE 400 MG TABLET PO SCH (08:45)
[2019-12-22] MEDS: LOSARTAN 50 MG TABLET PO SCH (08:45)
[2019-12-22] MEDS: ASCORBIC ACID 500 MG TABLET PO SCH ×2 (08:45→20:12)
[2019-12-22] MEDS: FAMOTIDINE 20 MG TABLET PO SCH ×2 (08:45→20:12)
[2019-12-22] MEDS: DOCUSATE SODIUM 100 MG/10 ML UDCUP PO SCH ×2 (08:46→20:13)
[2019-12-22] MEDS: ATORVASTATIN 10 MG TABLET PO SCH (08:46)
[2019-12-22] MEDS: ENOXAPARIN 30 MG/0.3 ML SYRINGE SUBCUT SCH ×2 (08:46→20:13)
[2019-12-22] MEDS: DEXAMETHASONE INJ 10 MG in SODIUM CHLORIDE 0.9% 50 ML IV SCH (08:47)
[2019-12-22] MEDS ORDERED: FUROSEMIDE 20 MG/2 ML VIAL IV ONE (10:30)
[2019-12-22] MEDS ORDERED: ALPRAZolam 0.25 MG TABLET PO PRN (13:37)
[2019-12-22] MEDS: MONTELUKAST 10 MG TABLET PO SCH (20:13)
[2019-12-23] MEDS: ALBUTEROL INHALER 18 GM INH SCH ×4 (00:11→18:00)
[2019-12-23 05:55] LABS: Basophils % 0.1 % (0.0-0.8); Eosinophils # 0.1 10*3/uL (0.0-0.87); Eosinophils % 0.7 % (0.00-10.9); Hematocrit 33.8 VOL% (35.7-47.0); Hemoglobin 11.4 GM/DL (12.0-16.0); Immature Granulocytes % 0.9 %; Immature Granulocytes Absolute 0.11 #; Lymphocytes # 0.8 10*3/uL (1.4-4.0); Lymphocytes % 6.8 % (21.3-54.2); Mean Corpuscular HGB Conc 33.7 GM/DL (32-36); Mean Corpuscular Volume 82.8 FL (87-102); Mean Platelet Volume 10.5 FL (9.6-12.0); Monocytes % 2.7 % (1.7-12.7); Neutrophils % 88.8 % (38.7-73.9); Platelet Count 260 T/CUMM (130-400); Red Blood Count 4.08 MC/CUMM (3.8-5.5); Red Cell Distribution Width 13.3 % (9.3-17.3); White Blood Count 12.3 T/CUMM (4-12)
[2019-12-23 06:33] LABS: Bilirubin,Total 0.9 MG/DL (0.2-1.0); Calcium 7.8 MG/DL (8.5-10.1); Osmolality,Calculated 271.1 MOS/KG (273-304); Total Protein 5.9 G/DL (6.4-8.3)
[2019-12-23] MEDS: ENOXAPARIN 30 MG/0.3 ML SYRINGE SUBCUT SCH ×2 (08:31→20:41)
[2019-12-23] MEDS: ASCORBIC ACID 500 MG TABLET PO SCH ×2 (08:31→20:41)
[2019-12-23] MEDS: ASPIRIN EC 81 MG TABLET PO SCH (08:31)
[2019-12-23] MEDS: ATORVASTATIN 10 MG TABLET PO SCH (08:31)
[2019-12-23] MEDS: MULTIVITAMIN (CENTRUM) TABLET PO SCH (08:31)
[2019-12-23] MEDS: METOPROLOL TARTRATE 50 MG TABLET NG SCH ×2 (08:31→20:40)
[2019-12-23] MEDS: MAGNESIUM OXIDE 400 MG TABLET PO SCH (08:31)
[2019-12-23] MEDS: FAMOTIDINE 20 MG TABLET PO SCH ×2 (08:31→20:41)
[2019-12-23] MEDS: LOSARTAN 50 MG TABLET PO SCH (08:31)
[2019-12-23] MEDS: LORATADINE 10 MG TABLET PO SCH (08:31)
[2019-12-23] MEDS: DOCUSATE SODIUM 100 MG/10 ML UDCUP PO SCH ×2 (08:32→20:41)
[2019-12-23] MEDS: POTASSIUM CHLORIDE INJ 20 MEQ in DEXTROSE 5% NACL 0.45% 1,000 ML IV SCH ×2 (09:59→18:27)
[2019-12-23] MEDS: methylPREDNISolone SOD SUC 40 MG/1 ML VIAL IV SCH (13:46)
[2019-12-23] MEDS: ACETAMINOPHEN 325 MG TABLET PO PRN (13:46)
[2019-12-23] MEDS: MONTELUKAST 10 MG TABLET PO SCH (20:41)
[2019-12-23] MEDS: TEMAZEPAM 7.5 MG CAPSULE PO PRN (20:42)
[2019-12-24] MEDS: methylPREDNISolone SOD SUC 40 MG/1 ML VIAL IV SCH ×2 (01:00→12:20)
[2019-12-24] MEDS: ALBUTEROL INHALER 18 GM INH SCH ×4 (01:10→18:38)
[2019-12-24 05:20] LABS: Basophils % 0.1 % (0.0-0.8); Eosinophils % 0.1 % (0.00-10.9); Hematocrit 35.2 VOL% (35.7-47.0); Hemoglobin 11.4 GM/DL (12.0-16.0); Immature Granulocytes % 1.1 %; Immature Granulocytes Absolute 0.11 #; Lymphocytes # 0.3 10*3/uL (1.4-4.0); Lymphocytes % 3.2 % (21.3-54.2); Mean Corpuscular HGB Conc 32.4 GM/DL (32-36); Mean Corpuscular Volume 85.6 FL (87-102); Monocytes % 1.1 % (1.7-12.7); Neutrophils % 94.4 % (38.7-73.9); Platelet Count 236 T/CUMM (130-400); Red Blood Count 4.11 MC/CUMM (3.8-5.5); Red Cell Distribution Width 13.3 % (9.3-17.3); White Blood Count 10.2 T/CUMM (4-12)
[2019-12-24 05:33] LABS: Calcium 7.3 MG/DL (8.5-10.1); Osmolality,Calculated 272.1 MOS/KG (273-304)
[2019-12-24 06:16] LABS: Anisocytosis 1+; Lymphocytes 2 % (20-55); Platelet Estimate Normal; Segmented Neutrophils 96 % (50-85); Total Cells Counted 100
[2019-12-24] MEDS: DOCUSATE SODIUM 100 MG/10 ML UDCUP PO SCH ×2 (09:01→21:21)
[2019-12-24] MEDS: ATORVASTATIN 10 MG TABLET PO SCH (09:01)
[2019-12-24] MEDS: LORATADINE 10 MG TABLET PO SCH (09:02)
[2019-12-24] MEDS: MAGNESIUM OXIDE 400 MG TABLET PO SCH (09:02)
[2019-12-24] MEDS: FAMOTIDINE 20 MG TABLET PO SCH ×2 (09:02→21:22)
[2019-12-24] MEDS: ENOXAPARIN 30 MG/0.3 ML SYRINGE SUBCUT SCH ×2 (09:02→21:22)
[2019-12-24] MEDS: LOSARTAN 50 MG TABLET PO SCH (09:02)
[2019-12-24] MEDS: ASCORBIC ACID 500 MG TABLET PO SCH ×2 (09:02→21:22)
[2019-12-24] MEDS: MULTIVITAMIN (CENTRUM) TABLET PO SCH (09:02)
[2019-12-24] MEDS: ASPIRIN EC 81 MG TABLET PO SCH (09:02)
[2019-12-24] MEDS: METOPROLOL TARTRATE 50 MG TABLET NG SCH ×2 (09:02→21:21)
[2019-12-24] MEDS: DEXT 5% NACL 0.45% KCL 20 MEQ 20 MEQ/1,000 ML BAG IV SCH ×2 (10:01→21:48)
[2019-12-24] MEDS ORDERED: NYSTATIN 500,000 UNIT/5 ML UDCUP SWISH/SWAL SCH (15:30)
[2019-12-24] MEDS: NYSTATIN 500,000 UNIT/5 ML UDCUP SWISH/SWAL SCH (21:22)
[2019-12-24] MEDS: MONTELUKAST 10 MG TABLET PO SCH (21:22)
[2019-12-24] MEDS: TEMAZEPAM 7.5 MG CAPSULE PO PRN (21:22)
[2019-12-25] MEDS: methylPREDNISolone SOD SUC 40 MG/1 ML VIAL IV SCH (01:17)
[2019-12-25] MEDS: ALBUTEROL INHALER 18 GM INH SCH ×4 (01:20→18:27)
[2019-12-25 06:02] LABS: Calcium 7.6 MG/DL (8.5-10.1); Osmolality,Calculated 271.1 MOS/KG (273-304)
[2019-12-25] MEDS: MULTIVITAMIN (CENTRUM) TABLET PO SCH (09:28)
[2019-12-25] MEDS: MAGNESIUM OXIDE 400 MG TABLET PO SCH (09:28)
[2019-12-25] MEDS: NYSTATIN 500,000 UNIT/5 ML UDCUP SWISH/SWAL SCH ×2 (09:28→21:55)
[2019-12-25] MEDS: FAMOTIDINE 20 MG TABLET PO SCH ×2 (09:28→21:55)
[2019-12-25] MEDS: DOCUSATE SODIUM 100 MG/10 ML UDCUP PO SCH ×2 (09:28→21:55)
[2019-12-25] MEDS: METOPROLOL TARTRATE 50 MG TABLET NG SCH ×2 (09:29→21:55)
[2019-12-25] MEDS: ASCORBIC ACID 500 MG TABLET PO SCH ×2 (09:29→21:55)
[2019-12-25] MEDS: LORATADINE 10 MG TABLET PO SCH (09:29)
[2019-12-25] MEDS: LOSARTAN 50 MG TABLET PO SCH (09:29)
[2019-12-25] MEDS: ENOXAPARIN 30 MG/0.3 ML SYRINGE SUBCUT SCH ×2 (09:29→21:55)
[2019-12-25] MEDS: ASPIRIN EC 81 MG TABLET PO SCH (09:30)
[2019-12-25] MEDS: ATORVASTATIN 10 MG TABLET PO SCH (09:30)
[2019-12-25] MEDS: POTASSIUM CHLORIDE INJ 20 MEQ in DEXTROSE 5% NACL 0.45% 1,000 ML IV SCH (09:41)
[2019-12-25] MEDS: DEXT 5% NACL 0.45% KCL 20 MEQ 20 MEQ/1,000 ML BAG IV SCH (09:42)
[2019-12-25] MEDS: MONTELUKAST 10 MG TABLET PO SCH (21:55)
[2019-12-26] MEDS: ALBUTEROL INHALER 18 GM INH SCH ×4 (01:36→18:06)
[2019-12-26] MEDS: MAGNESIUM OXIDE 400 MG TABLET PO SCH (08:30)
[2019-12-26] MEDS: DOCUSATE SODIUM 100 MG/10 ML UDCUP PO SCH ×2 (08:30→22:26)
[2019-12-26] MEDS: MULTIVITAMIN (CENTRUM) TABLET PO SCH (08:30)
[2019-12-26] MEDS: ASPIRIN EC 81 MG TABLET PO SCH (08:30)
[2019-12-26] MEDS: FAMOTIDINE 20 MG TABLET PO SCH ×2 (08:30→22:27)
[2019-12-26] MEDS: ASCORBIC ACID 500 MG TABLET PO SCH ×2 (08:30→22:26)
[2019-12-26] MEDS: LORATADINE 10 MG TABLET PO SCH (08:31)
[2019-12-26] MEDS: METOPROLOL TARTRATE 50 MG TABLET NG SCH ×2 (08:31→22:27)
[2019-12-26] MEDS: NYSTATIN 500,000 UNIT/5 ML UDCUP SWISH/SWAL SCH ×2 (08:31→22:26)
[2019-12-26] MEDS: ATORVASTATIN 10 MG TABLET PO SCH (08:31)
[2019-12-26] MEDS: LOSARTAN 50 MG TABLET PO SCH (08:31)
[2019-12-26] MEDS: ENOXAPARIN 30 MG/0.3 ML SYRINGE SUBCUT SCH ×2 (08:32→22:25)
[2019-12-26] MEDS: MONTELUKAST 10 MG TABLET PO SCH (22:27)
[2019-12-27] MEDS: ALBUTEROL INHALER 18 GM INH SCH ×4 (00:26→18:26)
[2019-12-27 06:14] LABS: Basophils % 0.2 % (0.0-0.8); Eosinophils # 0.5 10*3/uL (0.0-0.87); Eosinophils % 4.1 % (0.00-10.9); Hemoglobin 11.5 GM/DL (12.0-16.0); Immature Granulocytes % 0.6 %; Immature Granulocytes Absolute 0.07 #; Lymphocytes # 0.8 10*3/uL (1.4-4.0); Lymphocytes % 7.5 % (21.3-54.2); Mean Corpuscular HGB Conc 33.8 GM/DL (32-36); Mean Platelet Volume 9.8 FL (9.6-12.0); Monocytes % 2.7 % (1.7-12.7); Neutrophils % 84.9 % (38.7-73.9); Platelet Count 236 T/CUMM (130-400); Red Blood Count 4.05 MC/CUMM (3.8-5.5); Red Cell Distribution Width 13.8 % (9.3-17.3); White Blood Count 10.9 T/CUMM (4-12)
[2019-12-27 06:44] LABS: Calcium 7.4 MG/DL (8.5-10.1); Osmolality,Calculated 263.4 MOS/KG (273-304)
[2019-12-27] MEDS: FAMOTIDINE 20 MG TABLET PO SCH ×2 (08:29→22:08)
[2019-12-27] MEDS: NYSTATIN 500,000 UNIT/5 ML UDCUP SWISH/SWAL SCH ×2 (08:29→22:07)
[2019-12-27] MEDS: MAGNESIUM OXIDE 400 MG TABLET PO SCH (08:29)
[2019-12-27] MEDS: DOCUSATE SODIUM 100 MG/10 ML UDCUP PO SCH ×2 (08:29→22:07)
[2019-12-27] MEDS: MULTIVITAMIN (CENTRUM) TABLET PO SCH (08:29)
[2019-12-27] MEDS: ATORVASTATIN 10 MG TABLET PO SCH (08:30)
[2019-12-27] MEDS: ASCORBIC ACID 500 MG TABLET PO SCH ×2 (08:30→22:07)
[2019-12-27] MEDS: LOSARTAN 50 MG TABLET PO SCH (08:30)
[2019-12-27] MEDS: METOPROLOL TARTRATE 50 MG TABLET NG SCH ×2 (08:30→22:08)
[2019-12-27] MEDS: LORATADINE 10 MG TABLET PO SCH (08:30)
[2019-12-27] MEDS: ASPIRIN EC 81 MG TABLET PO SCH (08:30)
[2019-12-27] MEDS: ENOXAPARIN 30 MG/0.3 ML SYRINGE SUBCUT SCH ×2 (08:30→22:08)
[2019-12-27] MEDS: MONTELUKAST 10 MG TABLET PO SCH (22:08)
[2019-12-28] MEDS: ALBUTEROL INHALER 18 GM INH SCH ×4 (01:08→20:26)
[2019-12-28 06:24] LABS: Basophils % 0.2 % (0.0-0.8); Eosinophils # 0.5 10*3/uL (0.0-0.87); Eosinophils % 5.2 % (0.00-10.9); Hematocrit 34.7 VOL% (35.7-47.0); Hemoglobin 11.7 GM/DL (12.0-16.0); Immature Granulocytes % 0.8 %; Immature Granulocytes Absolute 0.08 #; Lymphocytes # 0.9 10*3/uL (1.4-4.0); Lymphocytes % 8.9 % (21.3-54.2); Mean Corpuscular HGB Conc 33.7 GM/DL (32-36); Mean Corpuscular Volume 83.6 FL (87-102); Mean Platelet Volume 10.2 FL (9.6-12.0); Monocytes % 3.6 % (1.7-12.7); Neutrophils % 81.3 % (38.7-73.9); Platelet Count 252 T/CUMM (130-400); Red Blood Count 4.15 MC/CUMM (3.8-5.5); Red Cell Distribution Width 13.9 % (9.3-17.3); White Blood Count 10.4 T/CUMM (4-12)
[2019-12-28 06:48] LABS: Calcium 7.6 MG/DL (8.5-10.1); Osmolality,Calculated 267.1 MOS/KG (273-304)
[2019-12-28] MEDS: MAGNESIUM OXIDE 400 MG TABLET PO SCH (09:13)
[2019-12-28] MEDS: ASCORBIC ACID 500 MG TABLET PO SCH ×2 (09:13→20:25)
[2019-12-28] MEDS: FAMOTIDINE 20 MG TABLET PO SCH ×2 (09:13→20:25)
[2019-12-28] MEDS: ENOXAPARIN 30 MG/0.3 ML SYRINGE SUBCUT SCH ×2 (09:13→20:25)
[2019-12-28] MEDS: LORATADINE 10 MG TABLET PO SCH (09:13)
[2019-12-28] MEDS: METOPROLOL TARTRATE 50 MG TABLET NG SCH ×2 (09:13→20:25)
[2019-12-28] MEDS: LOSARTAN 50 MG TABLET PO SCH (09:13)
[2019-12-28] MEDS: ASPIRIN EC 81 MG TABLET PO SCH (09:13)
[2019-12-28] MEDS: DOCUSATE SODIUM 100 MG/10 ML UDCUP PO SCH ×2 (09:14→20:24)
[2019-12-28] MEDS: NYSTATIN 500,000 UNIT/5 ML UDCUP SWISH/SWAL SCH ×2 (09:14→20:24)
[2019-12-28] MEDS: MULTIVITAMIN (CENTRUM) TABLET PO SCH (09:14)
[2019-12-28] MEDS: ATORVASTATIN 10 MG TABLET PO SCH (09:14)
[2019-12-28] MEDS: MONTELUKAST 10 MG TABLET PO SCH (20:25)
[2019-12-29] MEDS: ALBUTEROL INHALER 18 GM INH SCH ×4 (00:15→18:15)
[2019-12-29 06:26] LABS: Basophils % 0.3 % (0.0-0.8); Eosinophils # 0.5 10*3/uL (0.0-0.87); Hematocrit 37.1 VOL% (35.7-47.0); Hemoglobin 12.1 GM/DL (12.0-16.0); Immature Granulocytes % 0.6 %; Immature Granulocytes Absolute 0.07 #; Lymphocytes % 9.6 % (21.3-54.2); Mean Corpuscular HGB Conc 32.6 GM/DL (32-36); Mean Corpuscular Volume 85.7 FL (87-102); Mean Platelet Volume 9.9 FL (9.6-12.0); Monocytes % 3.3 % (1.7-12.7); Neutrophils % 81.2 % (38.7-73.9); Platelet Count 294 T/CUMM (130-400); Red Blood Count 4.33 MC/CUMM (3.8-5.5); Red Cell Distribution Width 13.8 % (9.3-17.3); White Blood Count 10.8 T/CUMM (4-12)
[2019-12-29 06:46] LABS: Osmolality,Calculated 266.2 MOS/KG (273-304)
[2019-12-29] MEDS: ASCORBIC ACID 500 MG TABLET PO SCH ×2 (09:23→20:19)
[2019-12-29] MEDS: ATORVASTATIN 10 MG TABLET PO SCH (09:23)
[2019-12-29] MEDS: MAGNESIUM OXIDE 400 MG TABLET PO SCH (09:23)
[2019-12-29] MEDS: METOPROLOL TARTRATE 50 MG TABLET NG SCH ×2 (09:24→20:18)
[2019-12-29] MEDS: FAMOTIDINE 20 MG TABLET PO SCH ×2 (09:24→20:19)
[2019-12-29] MEDS: MULTIVITAMIN (CENTRUM) TABLET PO SCH (09:24)
[2019-12-29] MEDS: NYSTATIN 500,000 UNIT/5 ML UDCUP SWISH/SWAL SCH ×2 (09:24→20:18)
[2019-12-29] MEDS: LORATADINE 10 MG TABLET PO SCH (09:24)
[2019-12-29] MEDS: ASPIRIN EC 81 MG TABLET PO SCH (09:24)
[2019-12-29] MEDS: LOSARTAN 50 MG TABLET PO SCH (09:24)
[2019-12-29] MEDS: ENOXAPARIN 30 MG/0.3 ML SYRINGE SUBCUT SCH ×2 (09:28→20:18)
[2019-12-29] MEDS: DOCUSATE SODIUM 100 MG/10 ML UDCUP PO SCH ×2 (10:38→20:19)
[2019-12-29] MEDS ORDERED: MAGNESIUM HYDROXIDE SUSP 30 ML UDCUP PO ONE (13:54)
[2019-12-29] MEDS ORDERED: TAMSULOSIN 0.4 MG CAPSULE PO ONE (14:35)
[2019-12-29] MEDS: MONTELUKAST 10 MG TABLET PO SCH (20:19)
[2019-12-30] MEDS: ALBUTEROL INHALER 18 GM INH SCH ×4 (00:57→18:11)
[2019-12-30 07:10] LABS: Basophils % 0.3 % (0.0-0.8); Eosinophils # 0.5 10*3/uL (0.0-0.87); Eosinophils % 5.9 % (0.00-10.9); Hematocrit 33.9 VOL% (35.7-47.0); Hemoglobin 11.2 GM/DL (12.0-16.0); Immature Granulocytes % 0.8 %; Immature Granulocytes Absolute 0.06 #; Lymphocytes # 0.9 10*3/uL (1.4-4.0); Mean Platelet Volume 10.3 FL (9.6-12.0); Monocytes % 4.7 % (1.7-12.7); Neutrophils % 77.3 % (38.7-73.9); Platelet Count 273 T/CUMM (130-400); Red Blood Count 3.99 MC/CUMM (3.8-5.5); White Blood Count 7.9 T/CUMM (4-12)
[2019-12-30 07:31] LABS: Calcium 8.1 MG/DL (8.5-10.1); Osmolality,Calculated 262.5 MOS/KG (273-304)
[2019-12-30] MEDS: METOPROLOL TARTRATE 50 MG TABLET NG SCH ×2 (08:10→22:09)
[2019-12-30] MEDS: ASCORBIC ACID 500 MG TABLET PO SCH ×2 (08:26→22:07)
[2019-12-30] MEDS: ASPIRIN EC 81 MG TABLET PO SCH (08:28)
[2019-12-30] MEDS: LORATADINE 10 MG TABLET PO SCH (08:28)
[2019-12-30] MEDS: ATORVASTATIN 10 MG TABLET PO SCH (08:28)
[2019-12-30] MEDS: MULTIVITAMIN (CENTRUM) TABLET PO SCH (08:28)
[2019-12-30] MEDS: LOSARTAN 50 MG TABLET PO SCH (08:28)
[2019-12-30] MEDS: FAMOTIDINE 20 MG TABLET PO SCH ×2 (08:28→22:07)
[2019-12-30] MEDS: NYSTATIN 500,000 UNIT/5 ML UDCUP SWISH/SWAL SCH ×2 (08:29→22:06)
[2019-12-30] MEDS: DOCUSATE SODIUM 100 MG/10 ML UDCUP PO SCH ×2 (08:29→22:06)
[2019-12-30] MEDS: ENOXAPARIN 30 MG/0.3 ML SYRINGE SUBCUT SCH ×2 (08:29→22:09)
[2019-12-30] MEDS: MAGNESIUM HYDROXIDE SUSP 30 ML UDCUP PO PRN (08:29)
[2019-12-30] MEDS: MAGNESIUM OXIDE 400 MG TABLET PO SCH (09:37)
[2019-12-30] MEDS: ACETAMINOPHEN 325 MG TABLET PO PRN ×2 (13:19→22:15)
[2019-12-30] MEDS ORDERED: TAMSULOSIN 0.4 MG CAPSULE PO SCH (13:54)
[2019-12-30] MEDS ORDERED: SODIUM PHOSPHATE ENEMA 133 ML BOTTLE RECTAL ONE (16:00)
[2019-12-30] MEDS: TAMSULOSIN 0.4 MG CAPSULE PO SCH (22:07)
[2019-12-30] MEDS: MONTELUKAST 10 MG TABLET PO SCH (22:07)
[2019-12-31] MEDS: ALBUTEROL INHALER 18 GM INH SCH ×4 (00:40→19:09)
[2019-12-31] MEDS: METOPROLOL TARTRATE 50 MG TABLET NG SCH ×2 (00:47→08:25)
[2019-12-31 06:27] LABS: Basophils % 0.2 % (0.0-0.8); Eosinophils # 0.4 10*3/uL (0.0-0.87); Eosinophils % 5.3 % (0.00-10.9); Hematocrit 32.5 VOL% (35.7-47.0); Hemoglobin 10.8 GM/DL (12.0-16.0); Immature Granulocytes % 0.7 %; Immature Granulocytes Absolute 0.06 #; Lymphocytes # 0.8 10*3/uL (1.4-4.0); Lymphocytes % 9.3 % (21.3-54.2); Mean Corpuscular HGB Conc 33.2 GM/DL (32-36); Mean Corpuscular Volume 84.6 FL (87-102); Mean Platelet Volume 10.2 FL (9.6-12.0); Monocytes % 5.3 % (1.7-12.7); Neutrophils % 79.2 % (38.7-73.9); Platelet Count 242 T/CUMM (130-400); Red Blood Count 3.84 MC/CUMM (3.8-5.5); Red Cell Distribution Width 14.2 % (9.3-17.3); White Blood Count 8.1 T/CUMM (4-12)
[2019-12-31 06:46] LABS: Calcium 8.1 MG/DL (8.5-10.1); Osmolality,Calculated 260.7 MOS/KG (273-304)
[2019-12-31] MEDS: LORATADINE 10 MG TABLET PO SCH (08:24)
[2019-12-31] MEDS: ASCORBIC ACID 500 MG TABLET PO SCH ×2 (08:24→21:42)
[2019-12-31] MEDS: MAGNESIUM OXIDE 400 MG TABLET PO SCH (08:24)
[2019-12-31] MEDS: NYSTATIN 500,000 UNIT/5 ML UDCUP SWISH/SWAL SCH ×2 (08:25→21:40)
[2019-12-31] MEDS: FAMOTIDINE 20 MG TABLET PO SCH ×2 (08:25→21:42)
[2019-12-31] MEDS: ATORVASTATIN 10 MG TABLET PO SCH (08:25)
[2019-12-31] MEDS: ENOXAPARIN 30 MG/0.3 ML SYRINGE SUBCUT SCH ×2 (08:25→21:40)
[2019-12-31] MEDS: MULTIVITAMIN (CENTRUM) TABLET PO SCH (08:25)
[2019-12-31] MEDS: ASPIRIN EC 81 MG TABLET PO SCH (08:25)
[2019-12-31] MEDS: DOCUSATE SODIUM 100 MG/10 ML UDCUP PO SCH ×2 (08:25→21:39)
[2019-12-31] MEDS: ZINC OXIDE PASTE 113 GM TUBE TOP SCH ×2 (10:16→21:39)
[2019-12-31] MEDS ORDERED: DEXT 5% NACL 0.45% KCL 20 MEQ 20 MEQ/1,000 ML BAG IV SCH (11:00)
[2019-12-31] MEDS: DEXT 5% NACL 0.45% KCL 20 MEQ 20 MEQ/1,000 ML BAG IV SCH (12:59)
[2019-12-31] MEDS: TAMSULOSIN 0.4 MG CAPSULE PO SCH (21:39)
[2019-12-31] MEDS: METOPROLOL TARTRATE 25 MG TABLET PO SCH (21:40)
[2019-12-31] MEDS: MONTELUKAST 10 MG TABLET PO SCH (21:42)
[2020-01-01] MEDS: ALBUTEROL INHALER 18 GM INH SCH ×4 (01:26→19:35)
[2020-01-01] MEDS: DEXT 5% NACL 0.45% KCL 20 MEQ 20 MEQ/1,000 ML BAG IV SCH ×2 (02:00→15:35)
[2020-01-01 06:42] LABS: Basophils % 0.3 % (0.0-0.8); Eosinophils # 0.4 10*3/uL (0.0-0.87); Eosinophils % 5.8 % (0.00-10.9); Hemoglobin 10.2 GM/DL (12.0-16.0); Immature Granulocytes % 0.4 %; Immature Granulocytes Absolute 0.03 #; Lymphocytes % 15.1 % (21.3-54.2); Mean Corpuscular Volume 85.2 FL (87-102); Mean Platelet Volume 10.3 FL (9.6-12.0); Neutrophils % 72.4 % (38.7-73.9); Platelet Count 209 T/CUMM (130-400); Red Blood Count 3.52 MC/CUMM (3.8-5.5); Red Cell Distribution Width 14.4 % (9.3-17.3); White Blood Count 6.9 T/CUMM (4-12)
[2020-01-01 07:14] LABS: Calcium 7.8 MG/DL (8.5-10.1); Osmolality,Calculated 263.4 MOS/KG (273-304)
[2020-01-01] MEDS: ENOXAPARIN 30 MG/0.3 ML SYRINGE SUBCUT SCH ×2 (09:20→20:46)
[2020-01-01] MEDS: NYSTATIN 500,000 UNIT/5 ML UDCUP SWISH/SWAL SCH ×2 (09:20→20:45)
[2020-01-01] MEDS: MAGNESIUM HYDROXIDE SUSP 30 ML UDCUP PO PRN (09:20)
[2020-01-01] MEDS: DOCUSATE SODIUM 100 MG/10 ML UDCUP PO SCH ×2 (09:20→20:44)
[2020-01-01] MEDS: ATORVASTATIN 10 MG TABLET PO SCH (09:20)
[2020-01-01] MEDS: LORATADINE 10 MG TABLET PO SCH (09:21)
[2020-01-01] MEDS: METOPROLOL TARTRATE 25 MG TABLET PO SCH ×2 (09:21→20:46)
[2020-01-01] MEDS: ZINC OXIDE PASTE 113 GM TUBE TOP SCH ×2 (09:21→20:47)
[2020-01-01] MEDS: MAGNESIUM OXIDE 400 MG TABLET PO SCH (09:21)
[2020-01-01] MEDS: MULTIVITAMIN (CENTRUM) TABLET PO SCH (09:21)
[2020-01-01] MEDS: ASPIRIN EC 81 MG TABLET PO SCH (09:21)
[2020-01-01] MEDS: FAMOTIDINE 20 MG TABLET PO SCH ×2 (09:21→20:45)
[2020-01-01] MEDS: ASCORBIC ACID 500 MG TABLET PO SCH ×2 (09:21→20:45)
[2020-01-01] MEDS: TAMSULOSIN 0.4 MG CAPSULE PO SCH (20:45)
[2020-01-01] MEDS: MONTELUKAST 10 MG TABLET PO SCH (20:45)
[2020-01-02] MEDS: ALBUTEROL INHALER 18 GM INH SCH ×4 (01:30→18:43)
[2020-01-02 07:01] LABS: Basophils % 0.4 % (0.0-0.8); Eosinophils # 0.4 10*3/uL (0.0-0.87); Eosinophils % 5.7 % (0.00-10.9); Hematocrit 29.8 VOL% (35.7-47.0); Hemoglobin 9.7 GM/DL (12.0-16.0); Immature Granulocytes % 0.8 %; Immature Granulocytes Absolute 0.06 #; Lymphocytes # 0.9 10*3/uL (1.4-4.0); Lymphocytes % 12.5 % (21.3-54.2); Mean Corpuscular HGB Conc 32.6 GM/DL (32-36); Mean Corpuscular Volume 86.4 FL (87-102); Mean Platelet Volume 10.1 FL (9.6-12.0); Neutrophils % 74.6 % (38.7-73.9); Platelet Count 249 T/CUMM (130-400); Red Blood Count 3.45 MC/CUMM (3.8-5.5); Red Cell Distribution Width 14.5 % (9.3-17.3); White Blood Count 7.5 T/CUMM (4-12)
[2020-01-02 07:24] LABS: Calcium 7.7 MG/DL (8.5-10.1); Osmolality,Calculated 264.2 MOS/KG (273-304)
[2020-01-02] MEDS: MULTIVITAMIN (CENTRUM) TABLET PO SCH (09:40)
[2020-01-02] MEDS: LORATADINE 10 MG TABLET PO SCH (09:40)
[2020-01-02] MEDS: ASPIRIN EC 81 MG TABLET PO SCH (09:40)
[2020-01-02] MEDS: METOPROLOL TARTRATE 25 MG TABLET PO SCH (09:41)
[2020-01-02] MEDS: ENOXAPARIN 30 MG/0.3 ML SYRINGE SUBCUT SCH (09:41)
[2020-01-02] MEDS: ZINC OXIDE PASTE 113 GM TUBE TOP SCH (09:41)
[2020-01-02] MEDS: DOCUSATE SODIUM 100 MG/10 ML UDCUP PO SCH (09:41)
[2020-01-02] MEDS: ATORVASTATIN 10 MG TABLET PO SCH (09:41)
[2020-01-02] MEDS: NYSTATIN 500,000 UNIT/5 ML UDCUP SWISH/SWAL SCH (09:42)
[2020-01-02] MEDS: LOSARTAN 50 MG TABLET PO SCH (09:42)
[2020-01-02] MEDS: FAMOTIDINE 20 MG TABLET PO SCH (09:42)
[2020-01-02] MEDS: ASCORBIC ACID 500 MG TABLET PO SCH (09:42)
[2020-01-02] MEDS: MAGNESIUM OXIDE 400 MG TABLET PO SCH (09:42)
[2020-01-02] MEDS: DEXT 5% NACL 0.45% KCL 20 MEQ 20 MEQ/1,000 ML BAG IV SCH (10:39)
[2020-01-02 16:49] VITALS: BP 129/92
== END 2020-01-02 19:10 | disposition swing bed (61) | DRG 177 ==
LOC: N.ED 18:16 → N.EDINP 20:09 → SUATTDRO 20:09 → N.2E 22:34 → N.CC 12-13 11:14 → N.2E 12-21 16:14
PROVIDERS: ADMIT Family Medicine; ATTEND Family Medicine